=== PATIENT | female | born 1975 | race African-American/Black ===

== ENCOUNTER 2020-11-15 11:13 | Observation (INO) ==
[2020-11-15 12:21] LABS: Bacteria,Urine Occasional /HPF (Few); Bilirubin,Urine Negative (Negative); Blood, Urine Small mg/dL (Negative); Glucose,Urine (UA) Negative (Negative); Ketones,Urine Negative (Negative); Nitrite,Urine Negative (Negative); Protein,Urine Negative; RBC,Urine 8 /HPF (0-4); Squamous Epithelial Cell,Urine Occasional /HPF (0-10); Urine Appearance Slightly Hazy (Clear); Urine Color Straw (Yellow); Urine Specific Gravity 1.034 (1.001-1.035); Urine Urobilinogen < 2.0 EU/DL (0.2-1.0); WBC,Urine 3 /HPF (0-6)
[2020-11-15 12:50] LABS: Basophils % 0.3 % (0.0-0.8); Eosinophils % 0.6 % (0.00-10.9); Hematocrit 33.1 VOL% (35.7-47.0); Hemoglobin 10.1 GM/DL (12.0-16.0); Immature Granulocytes % 0.3 %; Immature Granulocytes Absolute 0.02 #; Lymphocytes # 1.6 10*3/uL (1.4-4.0); Lymphocytes % 23.2 % (21.3-54.2); Mean Corpuscular HGB Conc 30.5 GM/DL (32-36); Mean Platelet Volume 10.9 FL (9.6-12.0); Neutrophils % 65.6 % (38.7-73.9); Platelet Count 231 T/CUMM (130-400); Red Blood Count 3.72 MC/CUMM (3.8-5.5); Red Cell Distribution Width 13.2 % (9.3-17.3); White Blood Count 6.7 T/CUMM (4-12)
[2020-11-15 13:06] LABS: Albumin 3.5 G/DL (3.4-5.0); Bilirubin,Total 1.2 MG/DL (0.2-1.0); Calcium 10.4 MG/DL (8.5-10.1); Osmolality,Calculated 272.7 MOS/KG (273-304); Potassium 4.5 MMOL/L (3.5-5.1); Total Protein 7.6 G/DL (6.4-8.3)
[2020-11-15] MEDS ORDERED: cefTRIAXone 1,000 MG in SODIUM CHLORIDE 0.9% 100 ML IV STA (14:09)
[2020-11-15] MEDS: SODIUM CHLORIDE 0.9% 1,000 ML IV SCH (14:21)
[2020-11-15] MEDS: HYDROmorphone 2 MG/1 ML VIAL IV PRN ×2 (14:30→21:27)
[2020-11-15] MEDS ORDERED: cefTRIAXone 1,000 MG in SYRINGE 1 EACH IV ONE (15:15)
[2020-11-15] MEDS ORDERED: PROMETHAZINE 25 MG/1 ML VIAL IM PRN (15:25)
[2020-11-15] MEDS ORDERED: LACTULOSE 20 GM/30 ML UDCUP PO PRN (15:25)
[2020-11-15] MEDS ORDERED: ONDANSETRON 4 MG/2 ML VIAL IV PRN (15:25)
[2020-11-15] MEDS: ACETAMINOPHEN 325 MG TABLET PO SCH ×2 (16:51→23:50)
[2020-11-15] MEDS: FAMOTIDINE 20 MG TABLET PO SCH (21:26)
[2020-11-15] MEDS: TAMSULOSIN 0.4 MG CAPSULE PO SCH (21:27)
[2020-11-16] MEDS: SODIUM CHLORIDE 0.9% 1,000 ML IV SCH ×3 (01:17→18:36)
[2020-11-16] MEDS: ACETAMINOPHEN 325 MG TABLET PO SCH ×4 (05:20→23:16)
[2020-11-16 06:14] LABS: Basophils % 0.5 % (0.0-0.8); Eosinophils # 0.1 10*3/uL (0.0-0.87); Eosinophils % 3.3 % (0.00-10.9); Hematocrit 30.8 VOL% (35.7-47.0); Hemoglobin 9.3 GM/DL (12.0-16.0); Immature Granulocytes % 0.3 %; Immature Granulocytes Absolute 0.01 #; Lymphocytes # 1.8 10*3/uL (1.4-4.0); Lymphocytes % 44.6 % (21.3-54.2); Mean Corpuscular HGB Conc 30.2 GM/DL (32-36); Mean Corpuscular Volume 90.3 FL (87-102); Mean Platelet Volume 11.4 FL (9.6-12.0); Monocytes % 10.8 % (1.7-12.7); Neutrophils % 40.5 % (38.7-73.9); Platelet Count 215 T/CUMM (130-400); Red Blood Count 3.41 MC/CUMM (3.8-5.5); Red Cell Distribution Width 13.2 % (9.3-17.3)
[2020-11-16 06:20] LABS: Calcium 9.6 MG/DL (8.5-10.1); Osmolality,Calculated 280.1 MOS/KG (273-304); Potassium 4.3 MMOL/L (3.5-5.1)
[2020-11-16] MEDS: CITALOPRAM 40 MG TABLET PO SCH (09:00)
[2020-11-16] MEDS ORDERED: SUCCINYLCHOLINE 200 MG/10 ML VIAL ONE (14:55)
[2020-11-16] MEDS ORDERED: fentaNYL 100 MCG/2 ML VIAL ONE (15:06)
[2020-11-16] MEDS ORDERED: cefTRIAXone 1,000 MG VIAL ONE (15:22)
[2020-11-16] MEDS ORDERED: SUGAMMADEX 200 MG/2 ML VIAL IV ONE (15:49)
[2020-11-16] MEDS ORDERED: SEVOFLURANE 1 UNIT/15 MINUTE INH ONE (16:01)
[2020-11-16] MEDS ORDERED: NEOSTIGMINE 10 MG/10 ML VIAL ONE (16:01)
[2020-11-16] MEDS ORDERED: ROCURONIUM 50 MG/5 ML VIAL IV ONE (16:01)
[2020-11-16] MEDS ORDERED: propofoL 200 MG/20 ML VIAL IV ONE (16:01)
[2020-11-16] MEDS ORDERED: GLYCOPYRROLATE 0.4 MG/2 ML VIAL ONE (16:01)
[2020-11-16] MEDS ORDERED: LIDOCAINE 2% 5 ML VIAL ONE (16:01)
[2020-11-16] MEDS ORDERED: ONDANSETRON 4 MG/2 ML VIAL ONE (16:01)
[2020-11-16] MEDS: TAMSULOSIN 0.4 MG CAPSULE PO SCH (20:17)
[2020-11-16] MEDS: FAMOTIDINE 20 MG TABLET PO SCH (20:17)
[2020-11-17] MEDS: SODIUM CHLORIDE 0.9% 1,000 ML IV SCH ×2 (04:15→08:19)
[2020-11-17] MEDS: ACETAMINOPHEN 325 MG TABLET PO SCH (05:15)
[2020-11-17 08:00] VITALS: BP 100/59
[2020-11-17] MEDS: CITALOPRAM 40 MG TABLET PO SCH (08:20)
== END 2020-11-17 10:50 | disposition home or self-care (01) ==
LOC: N.EDINP 11:13 → N.ED 11:13 → N.EDINP 15:30 → N.3E 15:40
PROVIDERS: ADMIT Surgery; ATTEND Surgery